=== PATIENT | male | born 1975 | race Caucasian/White ===

== ENCOUNTER 2017-02-21 18:57 | Emergency (ER) | payer SELFPAY ==
[~2017-02-21] VITALS: Ht 167.6 cm; Wt 60.0 kg
[2017-02-21 18:59] VITALS: BP 135/60; PULSE 66; RESP 15; TEMP 99.1; O2SAT 100
--- NOTE | 2017-02-21 21:05 | PD ---
HPI Chief Complaint: Pain: Acute or Chronic Time Seen by Provider: 21:02 Travel History International Travel<30 days: No Contact w/Intl Traveler<30days: No Traveled to known affect area: No History of Present Illness HPI Patient is a 41-year-old male presenting to emergency department evaluation of right shoulder pain. Patient states pain is been ongoing for 2 weeks, it started after he lifted something heavy at work. Patient states the pain runs down the anterior shoulder to his bicep, into his neck and down his back. He states it's aching and cramping, the pain is a 7 out of 10. He has taken Aleve sporadically but not consistently. Pain is exacerbated with certain movements. He denies any weakness, numbness, tingling. PFSH Past Medical History Medical History: Denies Significant Hx Social History Tobacco Use: Yes Allergies-Medications (Allergen,Severity, Reaction): Coded Allergies: No Known Allergies (Unverified , 02/21/17) Reported Meds & Prescriptions Reported Meds & Active Scripts Active No Active Prescriptions or Reported Medications Review of Systems Except as stated in HPI: all other systems reviewed are Neg Musculoskeletal: Positive: Myalgias, Cramping, Pain Physical Exam Narrative GENERAL: Well-developed, well-nourished, alert male. Resting comfortably in no acute distress. SKIN: Warm and dry. HEAD: Normocephalic. EYES: No scleral icterus. No injection or drainage. NECK: Supple, trachea midline. No JVD or lymphadenopathy. CARDIOVASCULAR: Regular rate and rhythm without murmurs, gallops, or rubs. RESPIRATORY: Breath sounds equal bilaterally. No accessory muscle use. GASTROINTESTINAL: Abdomen soft, non-tender, nondistended. MUSCULOSKELETAL: No cyanosis, or edema. Tenderness palpation on anterior right shoulder down bicep. Sensation is intact, 2+ radial pulse, with <3 second capillary refill. Decreased range of motion with abduction. BACK: Nontender without obvious deformity. No CVA tenderness. Data Data Last Documented VS Vital Signs Date Time Temp Pulse Resp B/P (MAP) Pulse Ox O2 Delivery O2 Flow Rate FiO2 02/21/17 18:59 99.1 66 15 135/60 (85) 100 Room Air Orders Orders Ketorolac Inj (Toradol Inj) (02/21/17 21:15) Orphenadrine Inj (Norflex Inj) (02/21/17 21:15) Dexamethasone Inj (Decadron Inj) (02/21/17 21:15) [facility] Medical Decision Making Medical Screen Exam Complete: Yes Emergency Medical Condition: Yes Interpretation(s) Vital Signs Date Time Temp Pulse Resp B/P (MAP) Pulse Ox O2 Delivery O2 Flow Rate FiO2 02/21/17 18:59 99.1 66 15 135/60 (85) 100 Room Air Differential Diagnosis Strain versus sprain versus spasm versus tendinitis versus other Narrative Course Patient presented for evaluation of right shoulder pain. Physical examination appears most consistent with rotator cuff tendinitis. Patient be given Toradol , Norflex, dexamethasone now. Will reassess. Patient's vital signs are stable. Patient reports improvement in his symptoms, he is encouraged to alternate heat and ice to affected area, continue range of motion exercises, avoid exacerbating activities, avoid bed rest. He is encouraged follow-up with primary doctor or at the [facility] or with orthopedic surgeon for further evaluation and management. He is encouraged to take medications as needed and as directed. He is encouraged to return to emergency department for any new or worsening symptoms. Patient verbalized understanding of instructions. Patient is stable for discharge. Diagnosis Primary Impression: Tendinitis of right shoulder Referrals: Orthopaedic Surgeon Primary Care Physician Patient Instructions: General Instructions, Rotator Cuff Tendinitis (ED) Additional Instructions: Follow-up with your primary doctor and orthopedic surgeon Continue range of motion exercises, alternate heat and ice to affected area, avoid exacerbating activities, avoid bed rest Take medications as directed Return to emergency department for any new or worsening symptoms Med/Other Pt SpecificInfo: Prescription(s) given Scripts Prednisone (Prednisone) 50 Mg Tab 50 MG PO DAILY for 5 Days, #5 TAB 0 Refills Prov: Razia Davies 02/21/17 Ibuprofen (Ibuprofen) 800 Mg Tab 800 MG PO Q6HR Y for PAIN, #40 TAB 0 Refills Prov: Razia Davies 02/21/17 Cyclobenzaprine (Flexeril) 10 Mg Tab 10 MG PO TID Y for MUSCLE SPASM, #30 TAB 0 Refills Prov: Razia Davies 02/21/17 Disposition: 01 DISCHARGE HOME Condition: Stable Razia Davies Feb 21, 2017 21:05
[2017-02-21] MEDS ORDERED: KETOROLAC TROMETHAMINE 60 MG/2 ML (IM) VIAL IM ONE (21:15)
[2017-02-21] MEDS ORDERED: ORPHENADRINE INJ 60 MG/2 ML AMP IM ONE (21:15)
[2017-02-21] MEDS ORDERED: DEXAMETHASONE SOD PHOS 20 MG/5 ML VIAL IM ONE (21:15)
[2017-02-21] MEDS ORDERED: CYCL1TAB29 PO (21:44)
[2017-02-21] MEDS ORDERED: IBUP800T23 PO (21:44)
[2017-02-21] MEDS ORDERED: PRED50 PO (21:44)
== END 2017-02-21 22:05 | disposition home or self-care (01) ==
LOC: NEPD 18:57
DX: M75.91 Shoulder lesion, unspecified, right shoulder (principal); Z72.0 Tobacco use
CPT/HCPCS: 96372; 99284; J1100; J1885; J2360